=== PATIENT | female | born 1990 | race Caucasian/White ===

== ENCOUNTER 2022-08-07 19:36 | Emergency (ER) | payer BC, SELFPAY ==
--- NOTE | 2022-08-07 19:15 | DI.CT_ITS ---
Exam(s) CT ABDOMEN PELVIS W EXAM: CT ABDOMEN PELVIS W CLINICAL HISTORY: llq abd pain, hx of hysto, endometriosis, Gsleeve TECHNIQUE: Imaging Protocol: Axial computed tomography images with coronal and sagittal reformatted images were created and reviewed CONTRAST MATERIAL: Intravenous: Omnipaque 350 Contrast volume:100 mL Oral: No COMPARISON: No exams were available for comparison FINDINGS: ABDOMEN: Lung Bases: Normal where visualized. Liver: Normal density. No measurable mass. Portal, Superior Mesenteric, and Splenic Veins: Unremarkable. Gallbladder and Biliary Tract: No radiodense calculus or dilation. Pancreas: Normal density, no abnormal calcifications or inflammatory process. Spleen: Normal. Adrenals: No masses seen. Kidneys: Normal size, contour and axis. No radiodense stones or obstructive uropathy. There is a 7 mm round homogeneous hypodensity in the left kidney. It is too small for further characterization but likely reflects a small cyst. No follow-up is recommended. Abdominal Aorta: Abdominal portion non-dilated. Bowel: No obstruction or bowel wall thickening. No evidence of appendicitis. The patient appears to be status post appendectomy. Postsurgical changes are seen in the stomach. Peritoneal Cavity: No ascites, collection or mesenteric inflammatory response. No free air. Lymph Nodes: Within normal limits. Bones: Within normal limits for the patient's age. Soft Tissues: Unremarkable. PELVIS: Bladder: Symmetric distention, no gross wall thickening. Reproductive Organs: Status post hysterectomy. Lymph Nodes: Within normal limits. Bones: Within normal limits for the patient's age. IMPRESSION: 1. No definite acute abdominal or pelvic process. 2. Postsurgical changes involving the stomach and status post hysterectomy. 3. No definite bowel wall thickening to suggest inflammatory infectious process. Please correlate cl inically. RADIATION DOSE DELIVERED: 998.22mGy.cm Total DLP DATA REPOSITORY: All CT scans at this facility are submitted to the National Radiology Data Registry (NRDR) Dose Index Registry (DIR) with the [employer] ([employer]). RADIATION OPTIMIZATION: All CT scans at this facility use at least one of these dose optimization te chniques: automated exposure control; mA and/or kV adjustment per patient size (includes targeted exa ms where dose is matched to clinical indication); or iterative reconstruction.
[2022-08-07 19:42] VITALS: BP 146/96; PULSE 73; RESP 16; TEMP 36.7; O2SAT 98
--- NOTE | 2022-08-07 19:50 | W.ED.GENAD ---
Discharge Plan Disposition Patient Disposition: Home Discharge Details Clinical Impression: Enteritis, Dehydration Primary Care Provider: Cinda,Local ED Provider: Orestes Ojeda Home Meds and New Rx's Prescriptions: New ondansetron 4 mg tablet,disintegrating 4 mg PO Q8H Qty: 20 0RF No Action buspirone 5 mg tablet 5 mg PO TID Patient Comments: TAKE 1 TABLET BY MOUTH THREE TIMES DAILY bupropion HCl 150 mg tablet sustained-release 12 hr 150 mg PO DAILY Patient Comments: TAKE 1 TABLET BY MOUTH ONCE DAILY clonazepam 0.5 mg tablet 0.5 mg PO BID Patient Comments: TAKE 1/2 TO 1 (ONE-HALF TO ONE) TABLET BY MOUTH TWICE DAILY NEEDED clonazepam 0.5 mg tablet 0.5 mg PO BID PRN Patient Comments: TAKE 1/2 TO 1 (ONE-HALF TO ONE) TABLET BY MOUTH TWICE DAILY NEEDED fluoxetine 20 mg capsule 80 mg PO DAILY Patient Comments: TAKE 3 CAPSULES BY MOUTH ONCE DAILY Orilissa 150 mg tablet 150 mg PO DAILY Discharge Instructions Instructions: Dehydration (ED), Enteritis (ED) Additional Instructions: At this time you have evidence of enteritis. Please stick with a brat diet, stay hydrated. If you notice any worsening of your symptoms, or any new symptoms such as vomiting, diarrhea, fever, chills, shortness of breath, chest pain, numbness, weakness, or fainting , please return immediately to the emergency department for reevaluation. Please follow up with your primary care provider as soon as possible for reassessment and reevaluation. As always, it was a pleasure participating in your medical care today. 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 She states that for the last 4 days she has had achy left lower quadrant abdominal pain that comes and goes in severity but is always present for pain. She states that her symptoms feel slightly similar to her previous endometriosis. She admits to vomiting and nausea but denies diarrhea. Pain is made worse with movement. Improved by nothing. She denies any urinary complaints. No other complaints at this time. No other modifying factors. Exam demonstrates dry mucous membranes, mild achiness in the left lower quadrant. No guarding or rebound. Symptoms appear inconsistent with an acute surgical abdomen. Differential includes diverticulitis, endometriosis, gastroenteritis and dehydration. We will rehydrate, treat the patient's pain, monitor closely and reassess. 11 PM Laboratory work-up has returned normal, no white count bandemia or left shift. Electrolytes are all normal, urinalysis normal, lipase normal. On reassessment patient feels much better. She has been rehydrated. CT scan of the abdomen shows evidence of enteritis, no other acute process. No abscess. Patient feels well and would like to go home. I do feel that this is reasonable. Symptoms consistent with mild enteritis. Will give Zofran for home use. Patient otherwise looks clinically well and repeat exam shows no signs of an acute surgical abdomen. Discussed red flags for which to return. I have extensively reviewed the treatment plan and discharge instructions with the patient. I have addressed all patient concerns at this time. The patient was made aware of what symptoms to monitor for that would warrant a return to the emergency department. Discussed the plan with the patient, they demonstrate verbal understanding and agreement with our assessment and plan at this time. The documentation in this chart was dictated using [employer] dictation software. Please excuse any dictation errors. FINDINGS: Lungs: Lung bases are clear. Liver: Normal. No mass. Gallbladder and bile ducts: Normal. No calcified stones. No ductal dilation. Pancreas: Normal. No ductal dilation. Spleen: Normal. No splenomegaly. Adrenal glands: Normal. No mass. Kidneys and ureters: Symmetric enhancement. No mass. Negative for hydronephrosis. Ureters are not dilated. No stones are observed. Stomach and bowel: Gastric sleeve noted. No fat stranding observed around the stomach. Nondilated small bowel. Fat planes around loops of small bowel are indistinct. Most of the colon is collapsed. Mild fat stranding noted around the ascending colon and the sigmoid colon. Appendix: The appendix is surgical absent. Intraperitoneal space: Mild mesenteric fat stranding. No significant free fluid. Negative for free air. Negative for abscess. Vasculature: Unremarkable. No abdominal aortic aneurysm. Lymph nodes: Mesenteric lymph nodes are mildly prominent. Negative for pathologic lymphadenopathy. Urinary bladder: Unremarkable as visualized. Reproductive: The uterus is surgically absent. Negative for adnexal mass or cyst. Bones/joints: Unremarkable. No acute fracture. Soft tissues: Negative for abdominal wall hernia. Scar tissue is noted in the infraumbilical abdominal wall. IMPRESSION: Findings of enteritis or enterocolitis. No bowel obstruction. No abscess. Thank you for allowing us to participate in the care of your patient. Dictated and Authenticated by: Donnie Bullock MD 08/07/2022 10:04 PM Eastern Time ([place] & [place]) HPI General Date/Time Provider Initiated Documentation: 08/07/22 19:38. 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 She states that for the last 4 days she has had achy left lower quadrant abdominal pain that comes and goes in severity but is always present for pain. She states that her symptoms feel slightly similar to her previous endometriosis. She admits to vomiting and nausea but denies diarrhea. Pain is made worse with movement. Improved by nothing. She denies any urinary complaints. No other complaints at this time. No other modifying factors. Related Data Home Medications Medication Instructions Recorded Confirmed bupropion HCl 150 mg tablet,12 hr 150 mg PO DAILY 08/07/22 08/07/22 sustained-release buspirone 5 mg tablet 5 mg PO TID 08/07/22 08/07/22 clonazepam 0.5 mg tablet 0.5 mg PO BID 08/07/22 08/07/22 clonazepam 0.5 mg tablet 0.5 mg PO BID PRN 08/07/22 08/07/22 elagolix 150 mg tablet (Orilissa) 150 mg PO DAILY 08/07/22 08/07/22 fluoxetine 20 mg capsule 80 mg PO DAILY 08/07/22 08/07/22 ondansetron 4 mg disintegrating 4 mg PO Q8H #20 tabs 08/07/22 tablet Previous Rx's Medication Instructions Recorded ondansetron 4 mg disintegrating 4 mg PO Q8H #20 tabs 08/07/22 tablet Allergies Allergy/AdvReac Type Severity Reaction Status Date / Time doxycycline Allergy Skin Rash Unverified 08/07/22 19:52 nsaids AdvReac Uncoded 08/07/22 19:52 Review of Systems All systems reviewed & are unremarkable except as noted in HPI and below PFSH All Active Problems (Updated 08/07/22 @ 23:03 by Orestes Ojeda DO) Enteritis (Acute) Dehydration (Acute) Social History Smoking/Tobacco Use Status: Never Smoking risk assessment performed?: Yes Drug use: Occasionally Substance use type: marijuana Exam Narrative Exam Narrative: 1.Const: Well-nourished, Well-developed, appearing stated age 2.Eyes: PERRL, no conjunctival injection, and symmetrical lids. 3.ENT: Atraumatic external nose and ears. Dry MM. Neck: Symmetric, trachea midline, No thyromegaly. 4.CVS: +S1/S2, No murmurs or gallops. Peripheral pulses 2+ and equal in all extremities. Brisk capillary refill in all extremities. 5.RESP: Unlabored respiratory effort. Clear to auscultation bilaterally. No wheezes rales or rhonchi 6.GI: Soft, nondistended, no guarding or rebound. Mild achiness in the left lower quadrant. No evidence of an acute surgical abdomen. No pain to McBurney's point, negative [place] sign 7.MSK: Normocephalic/Atraumatic, Extremities w/o deformity or ttp No cyanosis or clubbing, Normal movement of all extremities 8.Skin: Warm, Dry. No rashes or lesions. 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 Sensation grossly intact, no focal neurologic deficits. 10.Psych: (AAO) x3. Appropriate mood and affect
[2022-08-07 20:21] LABS: Lactate 0.7 mmol/L (0.6-1.4)
[2022-08-07 20:23] LABS: Abs Immature Grans 0.01 10^3/uL (0.0-0.06); Absolute Basophil Count 0.01 10^3/uL (0.0-0.2); Absolute Eosinophil Count 0.04 10^3/uL (0.0-0.7); Absolute Lymphocyte Count 1.11 10^3/uL (1.2-3.4); Absolute Monocyte Count 0.24 10^3/uL (0.1-0.8); Absolute Neutrophil Count 3.15 10^3/uL (1.2-6.7); Basophils % 0.2; Eosinophils % 0.9; HCT 40.6 % (36.0-46.0); HGB 13.4 g/dL (11.2-15.7); Immature Grans % 0.2; Lymphocytes % 24.3; MCH 29.3 pg (27.0-33.0); MCV 89 fL (80-95); MPV 8.5 fL (8.0-11.0); Monocytes % 5.3; Neutrophils % 69.1; Platelet Count 251 10^3/uL (130-400); RBC 4.57 10^6/uL (3.93-5.22); RDW 11.9 % (11.7-14.6); RDW-SD 38.8 fL; WBC 4.56 10^3/uL (4.4-10.8)
[2022-08-07] MEDS: Ketorolac 15 MG/ML VIAL IVP (20:25)
[2022-08-07] MEDS: MORPHine 4 MG/ML SYR IVP (20:26)
[2022-08-07] MEDS: Normal Saline 1,000 ML 1000 ML IV (20:26)
[2022-08-07 20:37] LABS: ALT 37 U/L (14-59); AST 17 U/L (15-37); Albumin 4.5 g/dL (3.4-5.0); Alkaline Phosphatase 68 U/L (46-116); Anion Gap 5.7 mmol/L (3-11); BUN 9 mg/dL (7-18); Bilirubin, Total 0.3 mg/dL (0.2-1.0); CO2 31.3 mmol/L (21.0-32.0); CREATININE 0.8 mg/dL (0.55-1.02); Calcium 9.3 mg/dL (8.5-10.1); Chloride 101 mmol/L (98-107); Estimated GFR 99.71 (mL/min/1.73m2); Glucose 97 mg/dL (74-106); Lipase 37 U/L (16-77); Sodium 138 mmol/L (136-145)
[2022-08-07 21:14] LABS: Bilirubin Negative (Negative); Blood Negative (Negative); Clarity Clear (Clear); Glucose Negative (Negative); Ketones Negative (Negative); Leukocyte Esterase Negative (Negative); Nitrite Negative (Negative); Specific Gravity <= 1.005 (1.005-1.025); Urobilinogen 0.2 mg/dL (Up to 0.2); pH 6.5 (5-8)
[2022-08-07] MEDS: Omnipaque 350 MG/ML 100 ML BTL IJ (21:16)
[2022-08-07] MEDS: Normal Saline - Diluent 50 ML VIAL IJ (21:17)
--- NOTE | 2022-08-07 22:05 | DI.VRAD_ITS ---
PROCEDURE INFORMATION: Exam: CT Abdomen And Pelvis With Contrast Exam date and time: 08/07/2022 9:17 PM Age: 32 years old Clinical indication: Abdominal pain; Localized; Left lower quadrant (llq); Prior surgery; Surgery date: 6+ months; Surgery type: HX of hysto, endometriosis, gsleeve; Additional info: Llq abd pain, HX of hysto, endometriosis, gsleeve TECHNIQUE: Imaging protocol: Computed tomography of the abdomen and pelvis with contrast. Radiation optimization: All CT scans at this facility use at least one of these dose optimization techniques: automated exposure control; mA and/or kV adjustment per patient size (includes targeted exams where dose is matched to clinical indication); or iterative reconstruction. Contrast material: OMNI 350; Contrast volume: 100 ml; Contrast route: INTRAVENOUS (IV); COMPARISON: No relevant prior studies available. FINDINGS: Lungs: Lung bases are clear. Liver: Normal. No mass. Gallbladder and bile ducts: Normal. No calcified stones. No ductal dilation. Pancreas: Normal. No ductal dilation. Spleen: Normal. No splenomegaly. Adrenal glands: Normal. No mass. Kidneys and ureters: Symmetric enhancement. No mass. Negative for hydronephrosis. Ureters are not dilated. No stones are observed. Stomach and bowel: Gastric sleeve noted. No fat stranding observed around the stomach. Nondilated small bowel. Fat planes around loops of small bowel are indistinct. Most of the colon is collapsed. Mild fat stranding noted around the ascending colon and the sigmoid colon. Appendix: The appendix is surgical absent. Intraperitoneal space: Mild mesenteric fat stranding. No significant free fluid. Negative for free air. Negative for abscess. Vasculature: Unremarkable. No abdominal aortic aneurysm. Lymph nodes: Mesenteric lymph nodes are mildly prominent. Negative for pathologic lymphadenopathy. Urinary bladder: Unremarkable as visualized. Reproductive: The uterus is surgically absent. Negative for adnexal mass or cyst. Bones/joints: Unremarkable. No acute fracture. Soft tissues: Negative for abdominal wall hernia. Scar tissue is noted in the infraumbilical abdominal wall. IMPRESSION: Findings of enteritis or enterocolitis. No bowel obstruction. No abscess. Dictated and Authenticated by: Donnie Bullock MD. Ordering:QUINTEN Carlisle MD
[2022-08-07 23:09] VITALS: BP 132/70; PULSE 72; RESP 16; TEMP 36.9; O2SAT 99
[2022-08-07] MEDS: Ondansetron O.D.T. 4 MG TABEF, 3 TABS/BTL PO (23:09)
== END 2022-08-07 23:11 | disposition home or self-care (01) ==
PROVIDERS: Emergency Provider Student in an Organized Health Care Education/Training Program
DX: K52.9 Noninfective gastroenteritis and colitis, unspecified (principal); E86.0 Dehydration
CPT/HCPCS: 80053; 81025; 83690; 96361; 96374; 96375; 99285; 74177; 81003; 83605; 85025; 99284; J1885; J2270; J3490